=== PATIENT | female | born 1965 | race African-American/Black ===

== ENCOUNTER 2016-06-22 08:47 | Inpatient (IN) | payer MEDICARE, MEDICAID ==
[~2016-06-22 08:47] MED LIST: ASPIRIN81 M1 PO; CATAPRES0.1 M1 PO; HYDRALAZINE HC100 M1 PO; ISOSORBIDE DINI10 M1 PO; LEVAQUIN250 M3 PO; LIPITOR40 M1 PO; MINOCYCLINE HC100 M1 PO; NEURONTIN300 M1 PO; PROTONIX40 M2 PO; RENAL CAPS SOFTG1 M1 PO; VIBRAMYCIN100 M1 PO; VITAMIN D5000 UNI2 PO
[2016-06-22] MEDS ORDERED: OMEPRAZOLE20 M4 PO (12:56)
[2016-06-22] MEDS ORDERED: COREG12.5 M1 PO (12:56)
[2016-06-22] MEDS ORDERED: ZOFRAN4 M2 PO (12:58)
[2016-06-22] MEDS ORDERED: NEURONTIN100 M1 PO (12:59)
[2016-06-22] MEDS ORDERED: [UNRECOGNIZED DRUG - OTHER] PO (13:00)
[2016-06-22 13:16] LABS: ANION GAP 13 mmol/L (0-20); BLOOD UREA NITROGEN 23 mg/dl (6-24); CALCIUM 8.7 mg/dl (8.5-10.5); CARBON DIOXIDE-VENOUS 27 mmol/L (22-32); CHLORIDE 92 mmol/l (96-110); MAGNESIUM 1.9 mg/dl (1.3-2.6); PHOSPHOROUS 2.5 mg/dl (2.5-4.9); POTASSIUM 3.3 mmol/L (3.7-5.1); PREALBUMIN 13.1 mg/dl (20.0-40.0); SODIUM 129 mmol/L (135-145); eGFR VALUE FOR BLACK 14 mL/Min
[2016-06-22 13:40] LABS: GLUCOSE 683 mg/dl (65-120)
[2016-06-22 16:54] LABS: BASO % 0.3 % (0-2); EOS % 2.1 % (0-7); EOSINOPHIL ABSOLUTE COUNT 0.3 tho/cmm (0.0-0.7); HCT-HEMATOCRIT 26.4 % (34.0-49.0); HGB-HEMOGLOBIN 8.8 gm/dl (12.0-15.5); IMMATURE GRANULOCYTES ABSOLUTE 0.16 tho/cmm (0-0.03); IMMATURE GRANULOCYTES PERCENT 1.1 % (0-0.3); LYMPH % 17.5 % (20-45); LYMPH ABSOLUTE COUNT 2.5 tho/cmm (0.8-4.5); MCH (MEAN CORPUSCULAR HGB) 28.9 pg (28.0-32.0); MCHC MEAN CORPUSCULAR HGB CONC 33.3 % (32.0-36.0); MCV (MEAN CELL VOLUME) 86.6 fl (82.0-96.0); MONO % 7.5 % (0-12); MONOCYTE ABSOLUTE COUNT 1.1 tho/cmm (0.0-1.2); NEUTROPHILS % 71.5 % (40-80); PLATELET COUNT 315 tho/cmm (150-450); RED BLOOD COUNT 3.05 mil/cmm (4.00-5.20); RED CELL DISTRIBUTION WIDTH 13.8 % (12.4-16.4)
[2016-06-22] MEDS ORDERED: LEVEMIR100 UNITS/ SC (20:06)
[2016-06-22] MEDS ORDERED: HUMALOG MI100 UNITS1 SC (20:07)
[2016-06-23 08:41] LABS: ANION GAP 15 mmol/L (0-20); BLOOD UREA NITROGEN 26 mg/dl (6-24); CARBON DIOXIDE-VENOUS 27 mmol/L (22-32); CHLORIDE 98 mmol/l (96-110); CREATININE 4.38 mg/dl (0.50-1.10); GLUCOSE 310 mg/dL (70-110); SODIUM 137 mmol/L (135-145)
[2016-06-23 08:42] LABS: CALCIUM 8.3 mg/dl (8.5-10.5); eGFR VALUE FOR BLACK 12 mL/Min
[2016-06-23 08:43] LABS: POTASSIUM 2.8 mmol/L (3.7-5.1)
[2016-06-23 21:30] LABS: BASO % 0.2 % (0-2); EOS % 4.8 % (0-7); EOSINOPHIL ABSOLUTE COUNT 0.6 tho/cmm (0.0-0.7); HCT-HEMATOCRIT 25.1 % (34.0-49.0); IMMATURE GRANULOCYTES ABSOLUTE 0.04 tho/cmm (0-0.03); IMMATURE GRANULOCYTES PERCENT 0.3 % (0-0.3); LYMPH % 9.9 % (20-45); LYMPH ABSOLUTE COUNT 1.3 tho/cmm (0.8-4.5); MCH (MEAN CORPUSCULAR HGB) 28.6 pg (28.0-32.0); MCHC MEAN CORPUSCULAR HGB CONC 31.9 % (32.0-36.0); MCV (MEAN CELL VOLUME) 89.6 fl (82.0-96.0); MEAN PLATELET VOLUME 9.1 cmc (9.4-12.4); MONO % 5.5 % (0-12); MONOCYTE ABSOLUTE COUNT 0.7 tho/cmm (0.0-1.2); NEUTROPHIL ABSOLUTE COUNT 10.4 tho/cmm (1.6-8.0); NEUTROPHIL-AUTOMATED 10.4 tho/cmm (1.6-8.0); NEUTROPHILS % 79.3 % (40-80); PLATELET COUNT 332 tho/cmm (150-450); RED CELL DISTRIBUTION WIDTH 14.3 % (12.4-16.4); WHITE BLOOD COUNT 13.1 tho/cmm (4.0-10.0)
[2016-06-23 21:44] LABS: BLOOD UREA NITROGEN 28 mg/dl (6-24); CALCIUM 8.6 mg/dl (8.5-10.5); CARBON DIOXIDE-VENOUS 26 mmol/L (22-32); CHLORIDE 99 mmol/l (96-110); CREATININE 5.15 mg/dl (0.50-1.10); SODIUM 136 mmol/L (135-145); eGFR VALUE FOR BLACK 10 mL/Min
[2016-06-23 21:59] LABS: ANION GAP 14 mmol/L (0-20); GLUCOSE 119 mg/dL (70-110)
[2016-06-24 06:02] LABS: BASO % 0.3 % (0-2); EOS % 4.9 % (0-7); EOSINOPHIL ABSOLUTE COUNT 0.6 tho/cmm (0.0-0.7); HGB-HEMOGLOBIN 7.5 gm/dl (12.0-15.5); IMMATURE GRANULOCYTES ABSOLUTE 0.05 tho/cmm (0-0.03); IMMATURE GRANULOCYTES PERCENT 0.4 % (0-0.3); LYMPH % 13.7 % (20-45); LYMPH ABSOLUTE COUNT 1.8 tho/cmm (0.8-4.5); MCH (MEAN CORPUSCULAR HGB) 28.4 pg (28.0-32.0); MCHC MEAN CORPUSCULAR HGB CONC 31.4 % (32.0-36.0); MCV (MEAN CELL VOLUME) 90.5 fl (82.0-96.0); MONO % 5.2 % (0-12); MONOCYTE ABSOLUTE COUNT 0.7 tho/cmm (0.0-1.2); NEUTROPHIL ABSOLUTE COUNT 9.9 tho/cmm (1.6-8.0); NEUTROPHIL-AUTOMATED 9.9 tho/cmm (1.6-8.0); NEUTROPHILS % 75.5 % (40-80); PLATELET COUNT 299 tho/cmm (150-450); RED BLOOD COUNT 2.64 mil/cmm (4.00-5.20); RED CELL DISTRIBUTION WIDTH 14.5 % (12.4-16.4); WHITE BLOOD COUNT 13.1 tho/cmm (4.0-10.0)
[2016-06-24 06:06] LABS: HCT-HEMATOCRIT 23.9 % (34.0-49.0)
[2016-06-24 06:13] LABS: ALBUMIN 1.8 g/dl (3.5-5.0); BLOOD UREA NITROGEN 29 mg/dl (6-24); CALCIUM 8.3 mg/dl (8.5-10.5); CARBON DIOXIDE-VENOUS 26 mmol/L (22-32); CHLORIDE 102 mmol/l (96-110); CREATININE 5.35 mg/dl (0.50-1.10); PHOSPHOROUS 2.3 mg/dl (2.5-4.9); SODIUM 138 mmol/L (135-145); eGFR VALUE FOR BLACK 10 mL/Min
[2016-06-24 06:41] LABS: ANION GAP 13 mmol/L (0-20); POTASSIUM 2.9 mmol/L (3.7-5.1)
[2016-06-24 06:42] LABS: GLUCOSE 49 mg/dL (70-110)
[2016-06-25 06:28] LABS: BASO % 0.5 % (0-2); EOS % 6.1 % (0-7); EOSINOPHIL ABSOLUTE COUNT 0.5 tho/cmm (0.0-0.7); HCT-HEMATOCRIT 26.7 % (34.0-49.0); HGB-HEMOGLOBIN 8.4 gm/dl (12.0-15.5); IMMATURE GRANULOCYTES ABSOLUTE 0.06 tho/cmm (0-0.03); IMMATURE GRANULOCYTES PERCENT 0.8 % (0-0.3); LYMPH % 22.2 % (20-45); LYMPH ABSOLUTE COUNT 1.7 tho/cmm (0.8-4.5); MCH (MEAN CORPUSCULAR HGB) 27.5 pg (28.0-32.0); MCHC MEAN CORPUSCULAR HGB CONC 31.5 % (32.0-36.0); MCV (MEAN CELL VOLUME) 87.5 fl (82.0-96.0); MEAN PLATELET VOLUME 9.3 cmc (9.4-12.4); MONO % 5.8 % (0-12); MONOCYTE ABSOLUTE COUNT 0.4 tho/cmm (0.0-1.2); NEUTROPHIL ABSOLUTE COUNT 4.9 tho/cmm (1.6-8.0); NEUTROPHIL-AUTOMATED 4.9 tho/cmm (1.6-8.0); NEUTROPHILS % 64.6 % (40-80); RED BLOOD COUNT 3.05 mil/cmm (4.00-5.20); RED CELL DISTRIBUTION WIDTH 17.1 % (12.4-16.4); WHITE BLOOD COUNT 7.6 tho/cmm (4.0-10.0)
[2016-06-25 06:53] LABS: ALBUMIN 1.6 g/dl (3.5-5.0); ANION GAP 12 mmol/L (0-20); BLOOD UREA NITROGEN 9 mg/dl (6-24); CALCIUM 7.7 mg/dl (8.5-10.5); CARBON DIOXIDE-VENOUS 25 mmol/L (22-32); CHLORIDE 104 mmol/l (96-110); PHOSPHOROUS 2.4 mg/dl (2.5-4.9); POTASSIUM 3.5 mmol/L (3.7-5.1); SODIUM 137 mmol/L (135-145); eGFR VALUE FOR BLACK 20 mL/Min
[2016-06-25 07:15] LABS: CREATININE 2.99 mg/dl (0.50-1.10); GLUCOSE 166 mg/dL (70-110)
[2016-06-26 07:15] LABS: BASO % 0.5 % (0-2); EOS % 7.2 % (0-7); EOSINOPHIL ABSOLUTE COUNT 0.6 tho/cmm (0.0-0.7); HGB-HEMOGLOBIN 8.7 gm/dl (12.0-15.5); IMMATURE GRANULOCYTES ABSOLUTE 0.11 tho/cmm (0-0.03); IMMATURE GRANULOCYTES PERCENT 1.4 % (0-0.3); LYMPH % 21.1 % (20-45); LYMPH ABSOLUTE COUNT 1.7 tho/cmm (0.8-4.5); MCH (MEAN CORPUSCULAR HGB) 27.7 pg (28.0-32.0); MCHC MEAN CORPUSCULAR HGB CONC 31.1 % (32.0-36.0); MCV (MEAN CELL VOLUME) 89.2 fl (82.0-96.0); MEAN PLATELET VOLUME 9.1 cmc (9.4-12.4); MONO % 9.2 % (0-12); MONOCYTE ABSOLUTE COUNT 0.8 tho/cmm (0.0-1.2); NEUTROPHIL ABSOLUTE COUNT 4.9 tho/cmm (1.6-8.0); NEUTROPHIL-AUTOMATED 4.9 tho/cmm (1.6-8.0); NEUTROPHILS % 60.6 % (40-80); RED BLOOD COUNT 3.14 mil/cmm (4.00-5.20); RED CELL DISTRIBUTION WIDTH 16.8 % (12.4-16.4); WHITE BLOOD COUNT 8.1 tho/cmm (4.0-10.0)
[2016-06-26 07:22] LABS: PLATELET COUNT 247 tho/cmm (150-450)
[2016-06-26 07:38] LABS: ALBUMIN 1.8 g/dl (3.5-5.0); ANION GAP 12 mmol/L (0-20); BLOOD UREA NITROGEN 10 mg/dl (6-24); CALCIUM 8.5 mg/dl (8.5-10.5); CARBON DIOXIDE-VENOUS 27 mmol/L (22-32); CHLORIDE 105 mmol/l (96-110); CREATININE 2.89 mg/dl (0.50-1.10); GLUCOSE 111 mg/dL (70-110); PHOSPHOROUS 2.5 mg/dl (2.5-4.9); POTASSIUM 3.6 mmol/L (3.7-5.1); SODIUM 140 mmol/L (135-145); eGFR VALUE FOR BLACK 21 mL/Min
[2016-06-26] MEDS ORDERED: NORCO 5-325 TA1 EACH PO (15:40)
[2016-06-26] MEDS ORDERED: LEVEMIR100 UNITS/ SC (15:46)
[2016-06-26] MEDS ORDERED: BACTRIM DS TAB1 EAC2 PO (15:51)
[2016-07-16] MEDS ORDERED: ELIQUIS5 M1 PO (14:26)
[2016-07-29] MEDS ORDERED: ATORVASTATIN CA40 M1 PO (15:40)
[2016-07-29] MEDS ORDERED: OMEPRAZOLE20 M3 PO (15:40)
[2016-07-29] MEDS ORDERED: ZOFRAN4 M2 PO (15:41)
[2016-07-29] MEDS ORDERED: RENAL CAPS SOFTG1 M1 PO (15:41)
[2016-07-29] MEDS ORDERED: CATAPRES0.1 M1 PO (15:45)
[2016-12-07] MEDS ORDERED: ISOSORBIDE DINI10 M1 PO (08:36)
== END 2016-06-26 18:15 | DRG 853 ==
LOC: WCC 08:47 → SHSC 11:22 → ORW 15:17 → PACU 16:17 → BURN 17:04
PROVIDERS: Family Medicine; Internal Medicine; Internal Medicine Nephrology; ADMIT Surgery
PROC: 0JBQ0ZZ Excision of Right Foot Subcutaneous Tissue and Fascia, Open Approach (ICD-10-PCS; principal; 2016-06-22)
PROC: 05H633Z Insertion of Infusion Device into Left Subclavian Vein, Percutaneous Approach (ICD-10-PCS; 2016-06-23)
PROC: 30243N1 Transfusion of Nonautologous Red Blood Cells into Central Vein, Percutaneous Approach (ICD-10-PCS; 2016-06-24)
PROC: 5A1D00Z (ICD-10-PCS; 2016-06-24)
DX: A41.9 Sepsis, unspecified organism (principal); N18.6 End stage renal disease; I13.2 Hypertensive heart and chronic kidney disease with heart failure and with stage 5 chronic kidney disease, or end stage renal disease; E11.52 Type 2 diabetes mellitus with diabetic peripheral angiopathy with gangrene; E11.22 Type 2 diabetes mellitus with diabetic chronic kidney disease; D62 Acute posthemorrhagic anemia; E87.1 Hypo-osmolality and hyponatremia; I50.20 Unspecified systolic (congestive) heart failure; L02.611 Cutaneous abscess of right foot; E11.621 Type 2 diabetes mellitus with foot ulcer; L97.519 Non-pressure chronic ulcer of other part of right foot with unspecified severity; Z79.4 Long term (current) use of insulin; E11.65 Type 2 diabetes mellitus with hyperglycemia; I25.10 Atherosclerotic heart disease of native coronary artery without angina pectoris; Z99.2 Dependence on renal dialysis; Z95.810 Presence of automatic (implantable) cardiac defibrillator; Z79.82 Long term (current) use of aspirin; E83.39 Other disorders of phosphorus metabolism; E87.6 Hypokalemia; Z95.5 Presence of coronary angioplasty implant and graft
CPT/HCPCS: C1751; J0171; J0885; J1580; J1644; J1815; J2501; J2543; J3370; J7030; J7999; P9016; P9045

== ENCOUNTER 2016-06-27 22:12 | Emergency (ER) | payer MEDICARE, MEDICAID ==
[~2016-06-27 22:12] MED LIST changes: +BACTRIM DS TAB1 EAC2 PO; +COREG12.5 M1 PO; +HUMALOG MI100 UNITS1 SC; +LEVEMIR100 UNITS/ SC; +NEURONTIN100 M1 PO; +NORCO 5-325 TA1 EACH PO; +OMEPRAZOLE20 M4 PO; +ZOFRAN4 M2 PO; +[UNRECOGNIZED DRUG - OTHER] PO
[2016-07-16] MEDS ORDERED: ELIQUIS5 M1 PO (14:26)
[2016-07-29] MEDS ORDERED: OMEPRAZOLE20 M3 PO (15:40)
[2016-07-29] MEDS ORDERED: ATORVASTATIN CA40 M1 PO (15:40)
[2016-07-29] MEDS ORDERED: RENAL CAPS SOFTG1 M1 PO (15:41)
[2016-07-29] MEDS ORDERED: ZOFRAN4 M2 PO (15:41)
[2016-07-29] MEDS ORDERED: CATAPRES0.1 M1 PO (15:45)
[2016-12-07] MEDS ORDERED: ISOSORBIDE DINI10 M1 PO (08:36)
== END 2016-06-28 02:07 ==
LOC: EDMED 22:12
DX: S91.301A Unspecified open wound, right foot, initial encounter (principal); E11.40 Type 2 diabetes mellitus with diabetic neuropathy, unspecified; E11.22 Type 2 diabetes mellitus with diabetic chronic kidney disease; I13.0 Hypertensive heart and chronic kidney disease with heart failure and stage 1 through stage 4 chronic kidney disease, or unspecified chronic kidney disease; N18.9 Chronic kidney disease, unspecified; I25.10 Atherosclerotic heart disease of native coronary artery without angina pectoris; Z95.5 Presence of coronary angioplasty implant and graft; Z79.4 Long term (current) use of insulin; Z87.891 Personal history of nicotine dependence; Z79.82 Long term (current) use of aspirin; Z79.899 Other long term (current) drug therapy; X58.XXXA Exposure to other specified factors, initial encounter

== ENCOUNTER 2016-07-19 10:33 | Emergency (ER) | payer MEDICARE, MEDICAID ==
[~2016-07-19 10:33] MED LIST changes: +ELIQUIS5 M1 PO
[2016-07-29] MEDS ORDERED: OMEPRAZOLE20 M3 PO (15:40)
[2016-07-29] MEDS ORDERED: ATORVASTATIN CA40 M1 PO (15:40)
[2016-07-29] MEDS ORDERED: RENAL CAPS SOFTG1 M1 PO (15:41)
[2016-07-29] MEDS ORDERED: ZOFRAN4 M2 PO (15:41)
[2016-07-29] MEDS ORDERED: CATAPRES0.1 M1 PO (15:45)
[2016-12-07] MEDS ORDERED: ISOSORBIDE DINI10 M1 PO (08:36)
== END 2016-07-19 13:21 ==
LOC: EDMED 10:33
DX: Z46.89 Encounter for fitting and adjustment of other specified devices (principal); I11.0 Hypertensive heart disease with heart failure; I25.2 Old myocardial infarction; E11.9 Type 2 diabetes mellitus without complications; Z95.0 Presence of cardiac pacemaker; Z99.2 Dependence on renal dialysis; Z79.4 Long term (current) use of insulin; Z79.82 Long term (current) use of aspirin; Z79.899 Other long term (current) drug therapy

== ENCOUNTER 2016-07-31 06:10 | Day surgery (SDC) | payer MEDICARE, MEDICAID ==
[~2016-07-31 06:10] MED LIST changes: +ATORVASTATIN CA40 M1 PO; +OMEPRAZOLE20 M3 PO
[2016-07-31 08:19] LABS: BASO % 0.5 % (0-2); EOS % 2.8 % (0-7); EOSINOPHIL ABSOLUTE COUNT 0.2 tho/cmm (0.0-0.7); HCT-HEMATOCRIT 27.2 % (34.0-49.0); HGB-HEMOGLOBIN 8.6 gm/dl (12.0-15.5); IMMATURE GRANULOCYTES ABSOLUTE 0.02 tho/cmm (0-0.03); IMMATURE GRANULOCYTES PERCENT 0.4 % (0-0.3); LYMPH % 26.8 % (20-45); LYMPH ABSOLUTE COUNT 1.5 tho/cmm (0.8-4.5); MCH (MEAN CORPUSCULAR HGB) 28.1 pg (28.0-32.0); MCHC MEAN CORPUSCULAR HGB CONC 31.6 % (32.0-36.0); MCV (MEAN CELL VOLUME) 88.9 fl (82.0-96.0); MEAN PLATELET VOLUME 9.4 cmc (9.4-12.4); MONO % 6.5 % (0-12); MONOCYTE ABSOLUTE COUNT 0.4 tho/cmm (0.0-1.2); NEUTROPHIL ABSOLUTE COUNT 3.6 tho/cmm (1.6-8.0); NEUTROPHIL-AUTOMATED 3.6 tho/cmm (1.6-8.0); PLATELET COUNT 219 tho/cmm (150-450); RED BLOOD COUNT 3.06 mil/cmm (4.00-5.20); RED CELL DISTRIBUTION WIDTH 14.8 % (12.4-16.4); WHITE BLOOD COUNT 5.7 tho/cmm (4.0-10.0)
[2016-07-31 08:28] LABS: ANION GAP 13 mmol/L (0-20); BLOOD UREA NITROGEN 34 mg/dl (6-24); CALCIUM 8.4 mg/dl (8.5-10.5); CARBON DIOXIDE-VENOUS 28 mmol/L (22-32); CHLORIDE 95 mmol/l (96-110); POTASSIUM 3.4 mmol/L (3.7-5.1); SODIUM 133 mmol/L (135-145); eGFR VALUE FOR BLACK 16 mL/Min
[2016-07-31 08:34] LABS: GLUCOSE 647 mg/dL (70-110)
[2016-08-01 06:49] LABS: BASO % 0.3 % (0-2); EOS % 3.7 % (0-7); EOSINOPHIL ABSOLUTE COUNT 0.2 tho/cmm (0.0-0.7); HCT-HEMATOCRIT 26.1 % (34.0-49.0); HGB-HEMOGLOBIN 8.2 gm/dl (12.0-15.5); IMMATURE GRANULOCYTES ABSOLUTE 0.01 tho/cmm (0-0.03); IMMATURE GRANULOCYTES PERCENT 0.2 % (0-0.3); LYMPH % 30.8 % (20-45); MCH (MEAN CORPUSCULAR HGB) 28.2 pg (28.0-32.0); MCHC MEAN CORPUSCULAR HGB CONC 31.4 % (32.0-36.0); MCV (MEAN CELL VOLUME) 89.7 fl (82.0-96.0); MEAN PLATELET VOLUME 9.3 cmc (9.4-12.4); MONOCYTE ABSOLUTE COUNT 0.4 tho/cmm (0.0-1.2); NEUTROPHIL ABSOLUTE COUNT 3.9 tho/cmm (1.6-8.0); NEUTROPHIL-AUTOMATED 3.9 tho/cmm (1.6-8.0); PLATELET COUNT 226 tho/cmm (150-450); RED BLOOD COUNT 2.91 mil/cmm (4.00-5.20); WHITE BLOOD COUNT 6.6 tho/cmm (4.0-10.0)
[2016-12-07] MEDS ORDERED: ISOSORBIDE DINI10 M1 PO (08:36)
== END 2016-08-03 15:30 ==
LOC: SRG 06:10 → SHSA 06:16 → BURN 10:30
PROVIDERS: Hospitalist; Surgery
PROC: 0HRMX74 Replacement of Right Foot Skin with Autologous Tissue Substitute, Partial Thickness, External Approach (ICD-10-PCS; principal; 2016-07-31)
PROC: B51WYZZ Fluoroscopy of Dialysis Shunt/Fistula using Other Contrast (ICD-10-PCS; 2016-08-03)
PROC: 03773ZZ Dilation of Right Brachial Artery, Percutaneous Approach (ICD-10-PCS; 2016-08-03)
PROC: 05773ZZ Dilation of Right Axillary Vein, Percutaneous Approach (ICD-10-PCS; 2016-08-03)
PROC: B31HYZZ Fluoroscopy of Right Upper Extremity Arteries using Other Contrast (ICD-10-PCS; 2016-08-03)
DX: S91.301A Unspecified open wound, right foot, initial encounter (principal); T82.858A Stenosis of other vascular prosthetic devices, implants and grafts, initial encounter; I25.2 Old myocardial infarction; I25.10 Atherosclerotic heart disease of native coronary artery without angina pectoris; I13.2 Hypertensive heart and chronic kidney disease with heart failure and with stage 5 chronic kidney disease, or end stage renal disease; E11.22 Type 2 diabetes mellitus with diabetic chronic kidney disease; N18.6 End stage renal disease; I50.9 Heart failure, unspecified; E11.42 Type 2 diabetes mellitus with diabetic polyneuropathy; E11.65 Type 2 diabetes mellitus with hyperglycemia; K21.9 Gastro-esophageal reflux disease without esophagitis; E87.1 Hypo-osmolality and hyponatremia; D63.1 Anemia in chronic kidney disease; E87.6 Hypokalemia; N25.81 Secondary hyperparathyroidism of renal origin; Z79.4 Long term (current) use of insulin; Z79.82 Long term (current) use of aspirin; Z79.899 Other long term (current) drug therapy; Z87.891 Personal history of nicotine dependence; Z89.421 Acquired absence of other right toe(s); Z95.810 Presence of automatic (implantable) cardiac defibrillator; Z95.5 Presence of coronary angioplasty implant and graft; Z98.890 Other specified postprocedural states; Z99.2 Dependence on renal dialysis
CPT/HCPCS: C1725; C1769; C1887; G0257; J0171; J0690; J0885; J1580; J1815; J2250; J2270; J3010; J3370; J7030; Q4081; Q9967